=== PATIENT | male | born 1930 | race Caucasian/White ===

== ENCOUNTER 2018-11-20 14:13 | Emergency (ER) | payer OTHER, MEDICARE, MEDICAID ==
[2018-11-20] MEDS ORDERED: NORMAL SALINE 500 ML IV ONE (16:33)
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
[2018-11-20 17:48] LABS: ANION GAP 8 (5-19); BLOOD UREA NITROGEN 24 mg/dL (7-20); CALCIUM 9.2 mg/dL (8.4-10.2); CARBON DIOXIDE 28 mmol/L (22-30); CHLORIDE 102 mmol/L (98-107); GLUCOSE 132 mg/dL (75-110); POTASSIUM 4.3 mmol/L (3.6-5.0)
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
[2018-11-21 02:23] VITALS: BP 132/68
[2018-11-21] MEDS ORDERED: MORPHINE SULFATE 10 MG/ML INJ IV ONE (02:30)
--- NOTE | 2018-11-22 00:50 | EKG REPORT ---
SEVERITY:- ABNORMAL ECG - SINUS RHYTHM FIRST DEGREE AV BLOCK LEFT ANTERIOR FASCICULAR BLOCK PROBABLE LEFT VENTRICULAR HYPERTROPHY CONSIDER ANTERIOR INFARCT : Confirmed by: Keiry Key 22-Nov-2018 00:49:53
== END 2018-11-21 02:45 | disposition short-term general hospital (02) ==
LOC: ER 14:13
DX: S22.22XA Fracture of body of sternum, initial encounter for closed fracture (principal); S22.43XA Multiple fractures of ribs, bilateral, initial encounter for closed fracture; S80.11XA Contusion of right lower leg, initial encounter; R07.89 Other chest pain; M25.572 Pain in left ankle and joints of left foot; M79.604 Pain in right leg; V43.62XA Car passenger injured in collision with other type car in traffic accident, initial encounter; I44.0 Atrioventricular block, first degree; I25.10 Atherosclerotic heart disease of native coronary artery without angina pectoris; I25.2 Old myocardial infarction; Z95.5 Presence of coronary angioplasty implant and graft; Z79.02 Long term (current) use of antithrombotics/antiplatelets
CPT/HCPCS: 93005; 99285; 96361; 96374; 36415; 80048; 73610; 73590; 70450; 71260; 72125; 74177; 93010; J2270; J7040